=== PATIENT | female | born 1940 | race Caucasian/White ===

== ENCOUNTER 2019-12-29 10:06 | Outpatient (REF) | payer MEDICARE, OTHER, SELFPAY ==
--- NOTE | 2019-12-29 11:11 | XR_ITS ---
EXAMINATION: XR CHEST CLINICAL INFORMATION: Respiratory problems COMPARISON: None TECHNIQUE: 2 views of the chest were obtained. FINDINGS: No significant abnormality is noted involving the heart, lungs, mediastinum, bony thorax or soft tissues. XR/XR chest 2V IMPRESSION: No acute disease.
== END 2019-12-29 10:07 | disposition home or self-care (01) ==
LOC: HO.XRAY 10:06
PROVIDERS: PCP Internal Medicine; Visit Provider Hospitalist
DX: J44.9 Chronic obstructive pulmonary disease, unspecified (principal); J30.9 Allergic rhinitis, unspecified; Z87.891 Personal history of nicotine dependence; Z88.1 Allergy status to other antibiotic agents; Z88.2 Allergy status to sulfonamides; Z79.82 Long term (current) use of aspirin; Z79.899 Other long term (current) drug therapy
CPT/HCPCS: 71046; 99214

== ENCOUNTER → 2020-07-23 10:57 | Outpatient (BNVA) | payer MEDICARE, OTHER, SELFPAY | PROVIDERS: PCP Internal Medicine; Visit Provider Hospitalist | DX: J30.9 Allergic rhinitis, unspecified (principal); J44.9 Chronic obstructive pulmonary disease, unspecified; R06.00 Dyspnea, unspecified; R91.8 Other nonspecific abnormal finding of lung field | CPT/HCPCS: 99212 ==

== ENCOUNTER → 2020-08-22 10:52 | Outpatient (BNVA) | payer MEDICARE, OTHER, SELFPAY | PROVIDERS: PCP Internal Medicine; Visit Provider Hospitalist | DX: R91.8 Other nonspecific abnormal finding of lung field (principal); J44.9 Chronic obstructive pulmonary disease, unspecified; J47.9 Bronchiectasis, uncomplicated | CPT/HCPCS: 99212 ==

== ENCOUNTER → 2020-12-27 10:10 | Outpatient (BNVA) | payer MEDICARE, OTHER, SELFPAY | PROVIDERS: PCP Internal Medicine; Visit Provider Hospitalist | DX: J44.9 Chronic obstructive pulmonary disease, unspecified (principal); J47.9 Bronchiectasis, uncomplicated; R91.8 Other nonspecific abnormal finding of lung field | CPT/HCPCS: 99212 ==

== ENCOUNTER → 2021-12-02 13:08 | Outpatient (BNVA) | payer MEDICARE, OTHER, SELFPAY | PROVIDERS: PCP Internal Medicine; Visit Provider Hospitalist | DX: R91.8 Other nonspecific abnormal finding of lung field (principal); J44.9 Chronic obstructive pulmonary disease, unspecified | CPT/HCPCS: 99212 ==

== ENCOUNTER 2023-01-01 13:51 | Outpatient (AMB) | payer MEDICARE, OTHER, SELFPAY ==
--- NOTE | 2023-01-01 13:59 | A.OFFVIS_ITS ---
Intake Vital Signs 01/01/23 14:01 Height 4 ft 10.5 in Weight 134 lb BMI 27.5 BP 122/60 Blood Pressure Location Lt brachial Position Sitting Pulse 81 Pulse Source Pulse Oximeter Pulse Oximetry (%) 96 Oxygen Delivery Method Room Air Intake Visit Reasons: S/p ct chest Intake Note: pt is here for yearly follow up and states her seasonal allergies are kicking up and she notices a difference. [place] and stairs little heavy. Decal Transferrer Required: No Allergies Erythromycin Allergy (Mild, Uncoded 01/01/23 14:05) Stomach Cramps Sulfa Drugs Allergy (Mild, Uncoded 01/01/23 14:05) Rash HPI HPI Comments History of Present Illness Details Mrs Benitez, is an 82 years old woman with a history of asthma. In addition she has history of dyspnea on exertion with occasional wheezing like feeling, for the past few years. She says that she had a pulmonary function test at [facility] about 2 years ago. Does not know exact to results. She has used ProAir only once or twice a year at the most. However in the last 6 months she her shortness of breath on exertion has gradually worsened , and in the last 2 months she is feeling tight in her chest with mild wheezing off and on. She did have pulmonary function studies which she was here including spirometry demonstrating severe COPD. The patient has been on Advair for many years. She has developed some hoarseness due to this medication. In the meantime we talked about adding a muscarinic antagonist the patient was not sure because she had a bad reaction to another inhaler in the past but she does not remember the name. She is very concerned because she is very sensitive to medications. Based on the fact that she has significant COPD she would really benefit from pulmonary rehabilitation. Therefore make arrangements with the pulmonary rehabilitation at [facility] which is close to her home. 12/29/2019 the patient is here for pulmonary follow-up visit. Overall she is feeling well. She has been using her respiratory medication with very good effect. She was participating a pulmonary rehabilitation until the rehab closed during the COVID-19 infections. In the meantime she has continued to exercise at home. She has noticed some slight discomfort to her left chest area primarily in the back. A seems to come and go. At this point does feel better. On examination she seems to have some crackles at the base. Therefore further imaging studies are warranted. 07/23/2020 the patient is here for pulmonary follow-up visit. She continues to use her respiratory medications. Currently taking 1 puff of the Advair twice a day. She still complaining of dyspnea on exertion. Moderate severity with minimal activity. She is wondering if she should increase her Advair. We did talk about other alternatives including putting her on triple agent. At this point the patient is not interested in switching inhalers. In addition to that we did review her imaging studies. Back in November [address] scan of the abdomen the documented some pulmonary nodules which are subcentimeter in size. Her multiple nodules noted bilateral. The patient needs to have a did a CT scan of the chest at this time to assess for the pulmonary nodules and also the significant dyspnea. She also had a 6 minutes walk test during the visit where she desaturated but did not qualify for oxygen. Therefore, will have her undergo pulmonary function studies as well. The patient would like to continue the Advair right now she will increase to the full dose. 08/22/2020 the patient is here for pulmonary follow-up visit. She is doing a little better after increasing the Advair to twice a day 2 puffs. Her shortness of breath and chest congestion have improved. She did undergo a CT scan of the chest which demonstrates evidence of bronchiectasis primarily in the right middle lobe right lower lobe and also in the lingular area. She also has pulmonary nodules in some tree-in-bud. Most likely is all related to smoldering infection such as mycobacterial disease. She likes to work in the garden we did talk about mycobacterial bacteria that time to be not so will. She is going to start wearing a mask. The patient does have evidence of mucus plugging so therefore she will start chest physical therapy with nebulized therapy with albuterol as well as an Acapella valve that we get through her [employer]. Will also try to get a sputum culture for overall of Gram staining culture and AFB cultures. The patient will continue with the Advair at this time. Will follow up in the fall and decide at that point depending on her symptoms went to repeat the CT scan between 6-12 months. 12/27/2020 the patient is here for a pulmonary follow-up visit. Overall the patient has been doing well. She has a hard time tolerating the nebulized therapy due to albuterol making her very shaky and tremulous. We did talk about the importance of the bronch all pulmonary hygiene. She does have the Acapella valve. She can try used using half a treatment and see if that is more tolerable for her. She we again discussed the findings on a CT scan demons trating tree-in-bud suggesting bronchiolitis in addition to small pulmonary nodules. Her last CT scan was back in August 2020. She was not able to bring sputum cultures her samples therefore we do not have any specimens to review. The patient will continue with current respiratory therapy and will follow-up next year will plan to do another CT scan for follow-up of her pulmonary nodules. 12/02/2021 the patient is here for pulmonary follow-up visit. Overall she continues to do well. She continues use her respiratory therapy. Denies any recent exacerbations or need for prednisone. She also underwent a CT scan of the chest in [place] personally by me. The patient has multiple pulmonary nodules although the largest nodule measuring 9 mm in size and appears to be ground glassy nature. We did compared to her previous CT scan from 2019. no significant changes noted although it is in a regular density just difficult to measure altogether. Does not appear to have any worsening solid component. The patient will require additional follow-up in 1 year or sooner if she develops any worsening symptoms. 01/01/2023 the patient is here for pulmonary follow-up visit. Overall the patient has been doing better. The patient states that back in the summertime the patient went to [place] to visit her son. While she was there she started developing worsening cough very congested and to the point that she had to seek medical advice. She was evaluated had a negative COVID test. She was found to be rhonchorous in give her a course of antibiotics. She was also given prednisone to take it if she worsens but she did not. The patient overall is better she states that she is 75% better. She still coughing though however. She does use her inhalers as prescribed. The patient did have a CT scan of the chest about a month ago. We did personally review it. It appears that she has new tree-in-bud changes in pulmonary nodules in the right lower lobe area and then a small area of ground-glass opacity suggesting a small localized pneumonia. Therefore will start her on doxycycline to treated for postviral bacterial infections and then will plan to repeat the CT scan an earlier time based on the new findings. [facility] Medical History (Updated 08/22/20 @ 11:26 by Amrik Rudolph MD) Bronchiectasis Dyspnea Pulmonary nodules Chest crackles Chronic allergic rhinitis COPD (chronic obstructive pulmonary disease) Social History Patient Tobacco Use Status: Former Tobacco user Tobacco use type: Cigarette Years Smoked: 34 years Review of Systems Const Denies night sweats ENT Denies change in voice, Denies lip swelling, Denies mouth pain, Reports nasal congestion, Reports nasal discharge and Denies tongue swelling Card Denies chest pain Resp Reports chest congestion and Reports cough GI Denies abdominal pain Musc Denies no additional complaints Neuro Denies Neuro-related abnormal movements Psych Denies no additional complaints Greg/Lymph Denies easy bleeding and Denies lymphadenopathy Aller/Immun Denies lip swelling and Denies tongue swelling Physical Exam Vital Signs: Last Vital Signs Pulse 81 01/01/23 14:01 BP 122/60 01/01/23 14:01 Pulse Ox 96 01/01/23 14:01 Oxygen Delivery Method Room Air 01/01/23 14:01 BMI result Body Mass Index 27.5 Const General: alert Eyes Pupils: Equal, round and reactive pupils present Neck Neck: Yes normal visual inspection, Yes full ROM and Yes no lymphadenopathy Chest Chest palpation & inspection: normal inspection of the chest Resp Auscultation: no crackles, rhonchi and diminished lung sounds Cardio Rate: regular rate Rhythm: regular rhythm Heart sounds: S1 normal heart sound present and S2 normal heart sound present GI Palpation (GI): Soft to palpation and nontender Auscultation: normal bowel sounds Skin General skin exam: rashes and/or lesions noted Neuro Cranial nerves: Yes Equal, round and reactive pupils present Assessment & Plan Assessment & Plan (1) Pulmonary nodules: Code(s): R91.8 - Other nonspecific abnormal finding of lung field (2) COPD (chronic obstructive pulmonary disease): Code(s): J44.9 - Chronic obstructive pulmonary disease, unspecified Qualifiers: COPD type: unspecified COPD Qualified Code(s): J44.9 - Chronic obstructive pulmonary disease, unspecified (3) Bronchiectasis: Code(s): J47.9 - Bronchiectasis, uncomplicated Qualifiers: Bronchiectasis type: uncomplicated Qualified Code(s): J47.9 - Bronchiectasis, uncomplicated Plan start Augmentin for bronchiolitis Repeat CT chest in 6 months Continue Advair 2 puffs twice a day HAYDEN as needed continue CPT with nebulized therapy followed by Acapella valve daily F/U 6 months Orders: Orders CT chest wo IV con 6 Months R91.8 - Other nonspecific abnormal finding of lung field Medications: New amoxicillin-pot clavulanate 875-125 mg 1 tab PO BID 20 tabs 0RF 10 days Coding Level of Care Code Est Pt Level 4 (06811) Diagnoses Pulmonary nodules R91.8 Chronic obstructive pulmonary disease, unspecified COPD type J44.9 COPD type: unspecified COPD Bronchiectasis without complication J47.9 Bronchiectasis type: uncomplicated Time Spent (min) 17
[2023-01-01 14:01] VITALS: BP 122/60; PULSE 81; O2SAT 96; BMI 27.5
== END 2023-01-01 14:33 | disposition home or self-care (01) ==
PROVIDERS: PCP Internal Medicine; Visit Provider Hospitalist
DX: R91.8 Other nonspecific abnormal finding of lung field (principal); J44.9 Chronic obstructive pulmonary disease, unspecified
CPT/HCPCS: 99214

== ENCOUNTER → 2023-01-01 13:51 | Outpatient (BNVA) | payer MEDICARE, OTHER, SELFPAY | PROVIDERS: PCP Internal Medicine; Visit Provider Hospitalist | DX: J44.9 Chronic obstructive pulmonary disease, unspecified (principal); R91.8 Other nonspecific abnormal finding of lung field; J47.9 Bronchiectasis, uncomplicated | CPT/HCPCS: 99212 ==

== ENCOUNTER 2023-06-18 14:42 | Outpatient (AMB) | payer MEDICARE, OTHER, SELFPAY ==
[2023-06-18 14:50] VITALS: BP 124/74; PULSE 79; O2SAT 97; BMI 28.6
--- NOTE | 2023-06-18 14:50 | A.OFFVIS_ITS ---
Intake Vital Signs 06/18/23 14:50 Height 4 ft 10.5 in Weight 139 lb BMI 28.6 BP 124/74 Blood Pressure Location Lt brachial Position Sitting Pulse 79 Pulse Source Pulse Oximeter Pulse Oximetry (%) 97 Oxygen Delivery Method Room Air Intake Visit Reasons: Review CT scan Allergies amoxicillin [From Augmentin] Adverse Reaction (Severe, Verified 06/18/23 14:58) vomiting clavulanic acid [From Augmentin] Adverse Reaction (Severe, Verified 06/18/23 14:58) vomiting doxycycline Adverse Reaction (Severe, Verified 06/18/23 14:57) Nausea Erythromycin Allergy (Mild, Uncoded 06/18/23 14:57) Stomach Cramps Sulfa Drugs Allergy (Mild, Uncoded 06/18/23 14:57) Rash HPI HPI Comments History of Present Illness Details Mrs Benitez, is an 82 years old woman with a history of asthma. In addition she has history of dyspnea on exertion with occasional wheezing like feeling, for the past few years. She says that she had a pulmonary function test at [facility] about 2 years ago. Does not know exact to results. She has used ProAir only once or twice a year at the most. However in the last 6 months she her shortness of breath on exertion has gradually worsened , and in the last 2 months she is feeling tight in her chest with mild wheezing off and on. She did have pulmonary function studies which she was here including spirometry demonstrating severe COPD. The patient has been on Advair for many years. She has developed some hoarseness due to this medication. In the meantime we talked about adding a muscarinic antagonist the patient was not sure because she had a bad reaction to another inhaler in the past but she does not remember the name. She is very concerned because she is very sensitive to medications. Based on the fact that she has significant COPD she would really benefit from pulmonary rehabilitation. Therefore make arrangements with the pulmonary rehabilitation at [facility] which is close to her home. 12/29/2019 the patient is here for pulmonary follow-up visit. Overall she is feeling well. She has been using her respiratory medication with very good effect. She was participating a pulmonary rehabilitation until the rehab closed during the COVID-19 infections. In the meantime she has continued to exercise at home. She has noticed some slight discomfort to her left chest area primarily in the back. A seems to come and go. At this point does feel better. On examination she seems to have some crackles at the base. Therefore further imaging studies are warranted. 07/23/2020 the patient is here for pulmonary follow-up visit. She continues to use her respiratory medications. Currently taking 1 puff of the Advair twice a day. She still complaining of dyspnea on exertion. Moderate severity with minimal activity. She is wondering if she should increase her Advair. We did talk about other alternatives including putting her on triple agent. At this point the patient is not interested in switching inhalers. In addition to that we did review her imaging studies. Back in November [address] scan of the abdomen the documented some pulmonary nodules which are subcentimeter in size. Her multiple nodules noted bilateral. The patient needs to have a did a CT scan of the chest at this time to assess for the pulmonary nodules and also the significant dyspnea. She also had a 6 minutes walk test during the visit where she desaturated but did not qualify for oxygen. Therefore, will have her undergo pulmonary function studies as well. The patient would like to continue the Advair right now she will increase to the full dose. 08/22/2020 the patient is here for pulmonary follow-up visit. She is doing a little better after increasing the Advair to twice a day 2 puffs. Her shortness of breath and chest congestion have improved. She did undergo a CT scan of the chest which demonstrates evidence of bronchiectasis primarily in the right middle lobe right lower lobe and also in the lingular area. She also has pulmonary nodules in some tree-in-bud. Most likely is all related to smoldering infection such as mycobacterial disease. She likes to work in the garden we did talk about mycobacterial bacteria that time to be not so will. She is going to start wearing a mask. The patient does have evidence of mucus plugging so therefore she will start chest physical therapy with nebulized therapy with albuterol as well as an Acapella valve that we get through her [employer] company. Will also try to get a sputum culture for overall of Gram staining culture and AFB cultures. The patient will continue with the Advair at this time. Will follow up in the fall and decide at that point depending on her symptoms went to repeat the CT scan between 6-12 months. 12/27/2020 the patient is here for a pulmonary follow-up visit. Overall the patient has been doing well. She has a hard time tolerating the nebulized therapy due to albuterol making her very shaky and tremulous. We did talk about the importance of the bronch all pulmonary hygiene. She does have the Acapella valve. She can try used using half a treatment and see if that is more tolerable for her. She we again discussed the findings on a CT scan dem onstrating tree-in-bud suggesting bronchiolitis in addition to small pulmonary nodules. Her last CT scan was back in August 2020. She was not able to bring sputum cultures her samples therefore we do not have any specimens to review. The patient will continue with current respiratory therapy and will follow-up next year will plan to do another CT scan for follow-up of her pulmonary nodules. 12/02/2021 the patient is here for pulmonary follow-up visit. Overall she continues to do well. She continues use her respiratory therapy. Denies any recent exacerbations or need for prednisone. She also underwent a CT scan of the chest in [place] personally by me. The patient has multiple pulmonary nodules although the largest nodule measuring 9 mm in size and appears to be ground glassy nature. We did compared to her previous CT scan from 2019. no significant changes noted although it is in a regular density just difficult to measure altogether. Does not appear to have any worsening solid component. The patient will require additional follow-up in 1 year or sooner if she develops any worsening symptoms. 01/01/2023 the patient is here for pulmonary follow-up visit. Overall the patient has been doing better. The patient states that back in the summertime the patient went to [place] to visit her son. While she was there she started developing worsening cough very congested and to the point that she had to seek medical advice. She was evaluated had a negative COVID test. She was found to be rhonchorous in give her a course of antibiotics. She was also given predni sone to take it if she worsens but she did not. The patient overall is better she states that she is 75% better. She still coughing though however. She does use her inhalers as prescribed. The patient did have a CT scan of the chest about a month ago. We did personally review it. It appears that she has new tree-in-bud changes in pulmonary nodules in the right lower lobe area and then a small area of ground-glass opacity suggesting a small localized pneumonia. Therefore will start her on doxycycline to treated for postviral bacterial infections and then will plan to repeat the CT scan an earlier time based on the new findings. 06/18/2023 the patient is here for pulmonary follow-up visit. Overall she is doing okay. She continues to have some hoarseness even with using the spacer with her Advair HFA. She has been using 1 puff twice a day. She will try taking little bit lost to see if her respiratory symptoms stay stable and hoarseness gets a little better. She is also will continue to rinse with mouthwash or salt water after use. The patient also had a CT scan of the chest which we personally reviewed. Patient does have multiple pulmonary nodules largest 1 between 5-6 mm in size. The patient will need to get a repeat CT scan in a year's time. In the meantime she will continue with current respiratory therapy. Follow-up in a year's time after her CT scan. [facility] Medical History (Updated 08/22/20 @ 11:26 by Amrik Rudolph MD) Bronchiectasis Dyspnea Pulmonary nodules Chest crackles Chronic allergic rhinitis COPD (chronic obstructive pulmonary disease) Social History Patient Tobacco Use Status: Former Tobacco user Tobacco use type: Cigarette Years Smoked: 34 years Review of Systems Const Denies night sweats ENT Denies change in voice, Denies lip swelling, Denies mouth pain, Reports nasal c ongestion, Reports nasal discharge and Denies tongue swelling Card Denies chest pain Resp Reports chest congestion and Reports cough GI Denies abdominal pain Musc Denies no additional complaints Neuro Denies Neuro-related abnormal movements Psych Denies no additional complaints Greg/Lymph Denies easy bleeding and Denies lymphadenopathy Aller/Immun Denies lip swelling and Denies tongue swelling Physical Exam Vital Signs: Last Vital Signs Pulse 79 06/18/23 14:50 BP 124/74 06/18/23 14:50 Pulse Ox 97 06/18/23 14:50 Oxygen Delivery Method Room Air 06/18/23 14:50 BMI result Body Mass Index 28.6 Const General: alert Eyes Pupils: Equal, round and reactive pupils present Neck Neck: Yes normal visual inspection, Yes full ROM and Yes no lymphadenopathy Chest Chest palpation & inspection: normal inspection of the chest Resp Auscultation: no crackles, no rhonchi and diminished lung sounds Cardio Rate: regular rate Rhythm: regular rhythm Heart sounds: S1 normal heart sound present and S2 normal heart sound present GI Palpation (GI): Soft to palpation and nontender Auscultation: normal bowel sounds Skin General skin exam: rashes and/or lesions noted Neuro Cranial nerves: Yes Equal, round and reactive pupils present Assessment & Plan Assessment & Plan (1) Pulmonary nodules: Code(s): R91.8 - Other nonspecific abnormal finding of lung field (2) COPD (chronic obstructive pulmonary disease): Code(s): J44.9 - Chronic obstructive pulmonary disease, unspecified Qualifiers: COPD type: unspecified COPD Qualified Code(s): J44.9 - Chronic obstructive pulmonary disease, unspecified (3) Bronchiectasis: Code(s): J47.9 - Bronchiectasis, uncomplicated Qualifiers: Bronchiectasis type: uncomplicated Qualified Code(s): J47.9 - Bronchiectasis, uncomplicated Plan Continue Advair 2 puffs twice a day with spacer, ok to decrease dose HAYDEN as needed continue CPT with nebulized therapy followed by Acapella valve daily repeat CT chest in 1 yr F/U 12 months Orders: Orders CT chest wo IV con 11 Months R91.8 - Other nonspecific abnormal finding of lung field Coding Level of Care Code Est Pt Level 4 (07038) Diagnoses Pulmonary nodules R91.8 Chronic obstructive pulmonary disease, unspecified COPD type J44.9 COPD type: unspecified COPD Bronchiectasis without complication J47.9 Bronchiectasis type: uncomplicated Time Spent (min) 17
== END 2023-06-18 15:14 | disposition home or self-care (01) ==
PROVIDERS: PCP Internal Medicine; Visit Provider Hospitalist
DX: R91.8 Other nonspecific abnormal finding of lung field (principal); J44.9 Chronic obstructive pulmonary disease, unspecified; J47.9 Bronchiectasis, uncomplicated
CPT/HCPCS: 99214

== ENCOUNTER → 2023-06-18 14:42 | Outpatient (BNVA) | payer MEDICARE, OTHER, SELFPAY | PROVIDERS: PCP Internal Medicine; Visit Provider Hospitalist | DX: R91.8 Other nonspecific abnormal finding of lung field (principal); J47.9 Bronchiectasis, uncomplicated; J44.9 Chronic obstructive pulmonary disease, unspecified | CPT/HCPCS: 99212 ==

== ENCOUNTER 2024-06-19 14:52 | Outpatient (AMB) | payer MEDICARE, OTHER, SELFPAY ==
[2024-06-19 15:08] VITALS: BP 132/76; PULSE 85; O2SAT 97; BMI 29.2
--- NOTE | 2024-06-19 15:08 | MHC.OFFVIS ---
Vital Signs 06/19/24 15:08 Height 4 ft 10.5 in Weight 142 lb 3.17 oz BMI 29.2 BP 132/76 Blood Pressure Location Rt brachial Position Sitting Pulse 85 Pulse Source Pulse Oximeter Pulse Oximetry (%) 97 Oxygen Delivery Method Room Air Intake Visit Reasons: Bronchiectasis Allergies amoxicillin [From Augmentin] Adverse Reaction (Severe, Verified 06/19/24 15:11) vomiting clavulanic acid [From Augmentin] Adverse Reaction (Severe, Verified 06/19/24 15:11) vomiting doxycycline Adverse Reaction (Severe, Verified 06/19/24 15:11) Nausea Erythromycin Allergy (Mild, Uncoded 06/19/24 15:11) Stomach Cramps Sulfa Drugs Allergy (Mild, Uncoded 06/19/24 15:11) Rash HPI Comments Details: Mrs Benitez, is an 83 years old woman with a history of asthma. In addition she has history of dyspnea on exertion with occasional wheezing like feeling, for the past few years. She says that she had a pulmonary function test at [facility] about 2 years ago. Does not know exact to results. She has used ProAir only once or twice a year at the most. However in the last 6 months she her shortness of breath on exertion has gradually worsened , and in the last 2 months she is feeling tight in her chest with mild wheezing off and on. She did have pulmonary function studies which she was here including spirometry demonstrating severe COPD. The patient has been on Advair for many years. She has developed some hoarseness due to this medication. In the meantime we talked about adding a muscarinic antagonist the patient was not sure because she had a bad reaction to another inhaler in the past but she does not remember the name. She is very concerned because she is very sensitive to medications. Based on the fact that she has significant COPD she would really benefit from pulmonary rehabilitation. Therefore make arrangements with the pulmonary rehabilitation at [facility] which is close to her home. 12/29/2019 the patient is here for pulmonary follow-up visit. Overall she is feeling well. She has been using her respiratory medication with very good effect. She was participating a pulmonary rehabilitation until the rehab closed during the COVID-19 infections. In the meantime she has continued to exercise at home. She has noticed some slight discomfort to her left chest area primarily in the back. A seems to come and go. At this point does feel better. On examination she seems to have some crackles at the base. Therefore further imaging studies are warranted. 07/23/2020 the patient is here for pulmonary follow-up visit. She continues to use her respiratory medications. Currently taking 1 puff of the Advair twice a day. She still complaining of dyspnea on exertion. Moderate severity with minimal activity. She is wondering if she should increase her Advair. We did talk about other alternatives including putting her on triple agent. At this point the patient is not interested in switching inhalers. In addition to that we did review her imaging studies. Back in November [address] scan of the abdomen the documented some pulmonary nodules which are subcentimeter in size. Her multiple nodules noted bilateral. The patient needs to have a did a CT scan of the chest at this time to assess for the pulmonary nodules and also the significant dyspnea. She also had a 6 minutes walk test during the visit where she desaturated but did not qualify for oxygen. Therefore, will have her undergo pulmonary function studies as well. The patient would like to continue the Advair right now she will increase to the full dose. 08/22/2020 the patient is here for pulmonary follow-up visit. She is doing a little better after increasing the Advair to twice a day 2 puffs. Her shortness of breath and chest congestion have improved. She did undergo a CT scan of the chest which demonstrates evidence of bronchiectasis primarily in the right middle lobe right lower lobe and also in the lingular area. She also has pulmonary nodules in some tree-in-bud. Most likely is all related to smoldering infection such as mycobacterial disease. She likes to work in the garden we did talk about mycobacterial bacteria that time to be not so will. She is going to start wearing a mask. The patient does have evidence of mucus plugging so therefore she will start chest physical therapy with nebulized therapy with albuterol as well as an Acapella valve that we get through her [employer] company. Will also try to get a sputum culture for overall of Gram staining culture and AFB cultures. The patient will continue with the Advair at this time. Will follow up in the fall and decide at that point depending on her symptoms went to repeat the CT scan between 6-12 months. 12/27/2020 the patient is here for a pulmonary follow-up visit. Overall the patient has been doing well. She has a hard time tolerating the nebulized therapy due to albuterol making her very shaky and tremulous. We did talk about the importance of the bronch all pulmonary hygiene. She does have the Acapella valve. She can try used using half a treatment and see if that is more tolerable for her. She we again discussed the findings on a CT scan demonstrating tree-in-bud suggesting bronchiolitis in addition to small pulmonary nodules. Her last CT scan was back in August 2020. She was not able to bring sputum cultures her samples therefore we do not have any specimens to review. The patient will continue with current respiratory therapy and will follow-up next year will plan to do another CT scan for follow-up of her pulmonary nodules. 12/02/2021 the patient is here for pulmonary follow-up visit. Overall she continues to do well. She continues use her respiratory therapy. Denies any recent exacerbations or need for prednisone. She also underwent a CT scan of the chest in [place] personally by me. The patient has multiple pulmonary nodules although the largest nodule measuring 9 mm in size and appears to be ground glassy nature. We did compared to her previous CT scan from 2019. no significant changes noted although it is in a regular density just difficult to measure altogether. Does not appear to have any worsening solid component. The patient will require additional follow-up in 1 year or sooner if she develops any worsening symptoms. 01/01/2023 the patient is here for pulmonary follow-up visit. Overall the patient has been doing better. The patient states that back in the summertime the patient went to [place] to visit her son. While she was there she started developing worsening cough very congested and to the point that she had to seek medical advice. She was evaluated had a negative COVID test. She was found to be rhonchorous in give her a course of antibiotics. She was also given prednisone to take it if she worsens but she did not. The patient overall is better she states that she is 75% better. She still coughing though however. She does use her inhalers as prescribed. The patient did have a CT scan of the chest about a month ago. We did personally review it. It appears that she has new tree-in-bud changes in pulmonary nodules in the right lower lobe area and then a small area of ground-glass opacity suggesting a small localized pneumonia. Therefore will start her on doxycycline to treated for postviral bacterial infections and then will plan to repeat the CT scan an earlier time based on the new findings. 06/18/2023 the patient is here for pulmonary follow-up visit. Overall she is doing okay. She continues to have some hoarseness even with using the spacer with her Advair HFA. She has been using 1 puff twice a day. She will try taking little bit lost to see if her respiratory symptoms stay stable and hoarseness gets a little better. She is also will continue to rinse with mouthwash or salt water after use. The patient also had a CT scan of the chest which we personally reviewed. Patient does have multiple pulmonary nodules largest 1 between 5-6 mm in size. The patient will need to get a repeat CT scan in a year's time. In the meantime she will continue with current respiratory therapy. Follow-up in a year's time after her CT scan. 06/19/2024 the patient is here for pulmonary follow-up visit. It has been about a year since we last spoke. Back in the winter or early 2024 she started developing bad cold. She saw her primary care doctor believe she got some antibiotics. Air cough got better but she still continue to a cough. She started developing some right-sided discomfort that radiates to the arm. She became concerned. During the same time she did undergo a CT scan of the chest to follow-up with pulmonary nodules. She had this elsewhere. She did call the office see what the results were we did send her a copy of the report saying that it was stable. Today though she came into the office and I personally reviewed the images demonstrating slight consolidation right middle lobe area. I did give her a Z-Talha since she still has some discomfort and she is still having a cough. But it seems like the pneumonia has now subsided for the most part. Will go ahead and plan to repeat the CAT scan in 3 months to make sure that the consolidation is all gone. If is still there we can talk about potential options. She does have the Acapella valve and CPT is important to continue. She does have some musculoskeletal discomfort with some pain in the costochondral joints. For the next CT scan will have her get the CAT scan here just to have access to the images quickly and to make sure that it can be addressed quickly specially since it was not visualized on the evaluation. [facility] Medical History (Updated 06/19/24 @ 20:54 by Amrik Rudolph MD) Pneumonia Bronchiectasis Dyspnea Pulmonary nodules Chest crackles Chronic allergic rhinitis COPD (chronic obstructive pulmonary disease) Social History Patient Tobacco Use Status: Former Tobacco user Tobacco use type: Cigarette Years Smoked: 34 years Review of Systems Const Denies night sweats ENT Denies change in voice, Denies lip swelling, Denies mouth pain, Reports nasal congestion, Reports nasal discharge and Denies tongue swelling Card Reports chest pain Resp Reports chest congestion and Reports cough GI Denies abdominal pain Musc Denies no additional complaints Neuro Denies Neuro-related abnormal movements Psych Denies no additional complaints Greg/Lymph Denies easy bleeding and Denies lymphadenopathy Aller/Immun Denies lip swelling and Denies tongue swelling Physical Exam Vital Signs: Last Vital Signs Pulse 85 06/19/24 15:08 BP 132/76 06/19/24 15:08 Pulse Ox 97 06/19/24 15:08 Oxygen Delivery Method Room Air 06/19/24 15:08 BMI result Body Mass Index 29.2 Const General: alert Eyes Pupils: Equal, round and reactive pupils present Neck Neck: Yes normal visual inspection, Yes full ROM and Yes no lymphadenopathy Chest Chest palpation & inspection: normal inspection of the chest Resp Auscultation: no crackles, no rhonchi and diminished lung sounds Cardio Rate: regular rate Rhythm: regular rhythm Heart sounds: S1 normal heart sound present and S2 normal heart sound present GI Palpation (GI): Soft to palpation and nontender Auscultation: normal bowel sounds Skin General skin exam: rashes and/or lesions noted Neuro Cranial nerves: Yes Equal, round and reactive pupils present Results Reviewed Results Reviewed: Assessment & Plan Assessment & Plan (1) Pulmonary nodules: Code(s): R91.8 - Other nonspecific abnormal finding of lung field Category: Medical (2) COPD (chronic obstructive pulmonary disease): Code(s): J44.9 - Chronic obstructive pulmonary disease, unspecified Category: Medical Qualifiers: COPD type: unspecified COPD Qualified Code(s): J44.9 - Chronic obstructive pulmonary disease, unspecified (3) Bronchiectasis: Code(s): J47.9 - Bronchiectasis, uncomplicated Category: Medical Qualifiers: Bronchiectasis type: uncomplicated Qualified Code(s): J47.9 - Bronchiectasis, uncomplicated (4) Pneumonia: Code(s): J18.9 - Pneumonia, unspecified organism Category: Medical Qualifiers: Laterality: right Lung location: middle lobe of lung Pneumonia type: due to unspecified organism Qualified Code(s): J18.9 - Pneumonia, unspecified organism (5) Chest pain: Code(s): R07.9 - Chest pain, unspecified Category: Medical Qualifiers: Chest pain type: unspecified Qualified Code(s): R07.9 - Chest pain, unspecified Plan Continue Advair 2 puffs twice a day with spacer, ok to decrease dose HAYDEN as needed continue CPT with nebulized therapy followed by Acapella valve daily start azithromycin 500mg x [address] chest in 3 months F/U 3-4 months Orders: Orders CT chest wo IV con 3 Months J18.9 - Pneumonia, unspecified organism, J47.9 - Bronchiectasis, uncomplicated, R07.9 - Chest pain, unspecified, R91.8 - Other nonspecific abnormal finding of lung field Medications: New azithromycin 500 mg PO DAILY 5 days 5 tabs 0RF Coding Level of Care Code Est Pt Level 4 (11574) Complex EM visit Add On G2211 Diagnoses Pulmonary nodules R91.8 Chronic obstructive pulmonary disease, unspecified COPD type J44.9 COPD type: unspecified COPD Bronchiectasis without complication J47.9 Bronchiectasis type: uncomplicated Pneumonia of right middle lobe due to infectious organism J18.9 Laterality: right Lung location: middle lobe of lung Pneumonia type: due to unspecified organism Chest pain, unspecified type R07.9 Chest pain type: unspecified Time Spent (min) 18
--- OUTSIDE RECORDS SUMMARY | 2024-06-19 17:25 | XMS_ITS | Data Portability ---
Author Organization [facility], [employer] Address [address] [facility] [address] [place] [phone] Assessment No assessment recorded. Plan of Treatment Reminders Order Date Submit Date Provider Last Modified By Organization Details Last Modified Time Details Appointments None record ed. Lab None record ed. Referral None record ed. Procedures None record ed. Surgeries None record ed. Imaging None record ed. Medication Orders None record ed. Patient TargetsNo targets recorded. Patient InstructionsNo instructions recorded. Reason for Referral None Reported. Problems Name Problem SNOMED Code Status Onset Date Resolution Date Notes Provider Name and Address Organization Details Recorded Time Laceration - injury 998963089 Active Anuja Culver [facility] 5 10:27:15 Laceration of finger 924141688 Active 015 Anuja Culver [facility] 5 10:27:15 Problem Notes None recorded. Medical Equipment None Reported. Medications Name Sig Start Date Stop Date Status Note LastModified by Organization Details LastModified Time Advair Diskus 100 mcg-50 mcg/dose powder for inhalation active Not Available Not Available N ot Available lorazepam 0.5 mg tablet active Not Available Not Available No t Available erythromycin 5 mg/gram (0.5 %) eye ointment active Not Available Not Available Not Available ProAir HFA 90 mcg/actuation aerosol inhaler active Not Available Not Available Not Available Vitals None Recorded Social History None recorded. Functional Status None recorded. Mental Status None recorded. Family History Nothing Reported. Medical History No medical history recorded. Gynecological HistoryNo gynecological history recorded. Obstetrics History GPAL:G 0 P 0 0 0 0 Past Encounters Encounter ID Performer Location Encounter Start Date Encounter Closed Date Diagnosis/Indication Diagnosis SNOMED-CT Code Diagnosis ICD10 Code Diagnosis Note [id number] [facility] [address] [place] [address] 11/14/2014 10:15:29 11/14/2014 11:15:59 Laceration - injury [id number] Health Concerns Section Related Observation LastModified by Organization Detai ls LastModified Time None Recorded Concern Status LastModified by Organization Details LastModified Time None Recorded Advance Directives Directive None Recorded Payers Encounter Date Sequence Insurance Name Policy Number Policy Denis Covered Member ID Denis Member ID Guarantor Name 10/24/2014 1 MEDICARE B-PA: [employer] [id number] Kaur Benitez [id number] Kaur Benitez 10/24/2014 2 [facility] IN[facility]MN[facility] - [facility] [id number] Kaur Benitez [id number] Kaur Benitez Notes Date Note Type Note Provider Name and Address Organization Details Recorded Time 10/24/2014 text/html client states sh e reached into her pocketbook and cut her finger Jarrett ramirez MA - [facility] 11/17/2014 17:17:06 OBGyn Episode No OBEpisode recorded.
== END 2024-06-19 15:59 | disposition home or self-care (01) ==
LOC: HO.HPS 14:52
PROVIDERS: PCP Internal Medicine; Visit Provider Hospitalist
DX: R91.8 Other nonspecific abnormal finding of lung field (principal); J44.9 Chronic obstructive pulmonary disease, unspecified; J47.9 Bronchiectasis, uncomplicated; J18.9 Pneumonia, unspecified organism; R07.9 Chest pain, unspecified
CPT/HCPCS: 99214; G2211

== ENCOUNTER → 2024-06-19 14:52 | Outpatient (BNVA) | payer MEDICARE, OTHER, SELFPAY | PROVIDERS: PCP Internal Medicine; Visit Provider Hospitalist | DX: J47.9 Bronchiectasis, uncomplicated (principal); J44.9 Chronic obstructive pulmonary disease, unspecified; J18.9 Pneumonia, unspecified organism; R91.8 Other nonspecific abnormal finding of lung field; R07.9 Chest pain, unspecified | CPT/HCPCS: 99212 ==

== ENCOUNTER 2024-09-14 10:08 | Outpatient (REF) | payer MEDICARE, OTHER, SELFPAY ==
--- NOTE | ~2024-09-14 | CT_ITS ---
EXAMINATION: CT CHEST WITHOUT IV CONTRAST INDICATION: J18.9 - Pneumonia, unspecified organism COMPARISON: Correlation is made with PA and lateral views of the chest dated 12/29/2019. TECHNIQUE: Helical CT scan of the chest was performed without intravenous contrast. Coronal and sagittal reformatted images were generated and reviewed. This CT exam was performed with one or more of the following dose reduction techniques: automated exposure control, adjustment of the mA and/or kV according to patient size, use of iterative reconstruction technique. DLP: 151 mGy-cm CHEST: THYROID: The thyroid is unremarkable. LUNGS: There is a 9 mm groundglass opacity at the right lung apex (series 12, image 25). There is atelectasis and volume loss of the right middle lobe with associated bronchiectasis. No endobronchial lesion is identified. There is a 2 mm nodule in the left lower lobe (series 12, image 112). Two adjacent 3 mm nodules are seen in the left lower lobe (series 12, images 120 and 121). MEDIASTINUM: There is no mediastinal lymphadenopathy. TIESHA: Evaluation of the hilar regions is limited by lack of intravenous contrast material. CARDIOVASCULATURE: The heart is normal in size. There is no pericardial effusion. The thoracic aorta is normal in caliber. DEGREE OF CORONARY CALCIFICATION: moderate PLEURA: There is no pleural effusion. No pneumothorax. MAIN AIRWAYS: The mainstem bronchi and proximal branches are patent. AXILLA: There is no axillary lymphadenopathy. BONES AND SOFT TISSUES: Unremarkable UPPER ABDOMEN: The liver is enlarged and demonstrates decreased attenuation, consistent with steatosis. The visualized portions of the spleen and adrenals have an unremarkable unenhanced appearance. There is a small hiatal hernia. CT/CT chest wo IV con IMPRESSION: 1. Right middle lobe atelectasis and associated bronchiectasis. No endobronchial lesion is identified. Bronchoscopy should be considered. 2. Scattered tiny bilateral pulmonary nodules as described. Please see Fleischner Society guidelines below. 3. Hepatomegaly and hepatic steatosis. Fleischner Criteria for pulmonary nodule follow-up SOLID NODULES: Low risk patient: <6mm: no follow-up 6-8mm: 6 month follow-up CT >8mm: PET/Biopsy/ 3 month follow-up CT High risk patient: <6mm: 12 month follow-up CT 6-8mm: 6 month follow-up CT >8mm: PET/Biopsy/ 3 month follow-up CT SUB-SOLID/GROUNDGLASS NODULES: All patients: > or = 6mm: 6 month follow-up CT *Please note that in patients in the following categories, the Fleischner criteria do not apply: Immunocompromised, lung cancer screening population, age below 35, and patients with known malignancy Electronically signed by: Garrett Gonzalez MD 09/14/2024 10:43 AM EDT
--- OUTSIDE RECORDS SUMMARY | 2024-09-14 10:46 | XMS_ITS | Data Portability ---
Author Organization [facility], [employer] Address [address] [facility] [address] [place] [address] Assessment No assessment recorded. Plan of Treatment [...] Organization Details Recorded Time Laceration - injury 357463626 Active Anujamaria elena Culver [facility] 5 10:27:15 Laceration of finger 280050724 Active 015 Anuja Culver [facility] 5 10:27:15 Problem Notes None recorded. Medical [...] Code Diagnosis ICD10 Code Diagnosis Note [id number] Jarrett Rowan MD [facility] [address] [place] [address] 11/14/2014 10:15:29 11/14/2014 11:15:59 Laceration - injury [id number] Health Concerns Section Related Observation LastModified by Organization Detai ls LastModified Time None Recorded Concern Status LastModified by Organization Details LastModified Time None Recorded Advance Directives Directive None Recorded Payers Insurance Date Sequence Insurance Name Policy Number Policy Denis Covered Member ID Denis Member ID Guarantor Name 12/10/2020 1 MEDICARE B-AR: [facility] [employer] [id number] 2 Kaur Benitez [id number] Kaur Benitez 12/10/2020 2 [facility] [id number] 2 Kaur Benitez [id number] Kaur Benitez Notes Date Note Type Note Provider Name and Address Organization Details Recorded Time 10/24/2014 text/html client states sh e reached into her pocketbook and cut her finger Jarrett ramirez MA - [facility] 11/17/2014 17:17:06 OBGyn Episode No OBEpisode recorded.
--- OUTSIDE RECORDS SUMMARY | 2024-09-14 10:46 | XMS_ITS | Clinical Summary ---
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 05/21/19 25 Active Advair HFA 115-21 mcg/actuation inhaler Inhale 2 puffs by mouth 2 (two) times a day. 03/16/19 25 Active OptiChamber Yamilet [facility] inhaler See administration instructions. 03/17/19 25 Active triamcinolone (KENALOG) 0.1 % cream Apply 1 Application topically 2 (two) times a day for 7 days. 30 g 09/05/19 25 025 Encounters Date Type Department Care Team Description 09/04/2024 3:15 PM EDT Office Visit [facility] - [address] [phone] Christoph Bhardwaj PA Allergic dermatitis (Primary Dx) 06/30/2024 3:15 PM EDT Office Visit [facility] - [address] [phone] Christoph Bhardwaj PA Tendinitis of right foot (Primary Dx) from Last 3 Months Surgical History Surgery Date Site/Laterality Comments APPENDECTOMY PROCEDURE: HISTORICAL APPENDECTOMY TONSILLECTOMY ADENOIDECTOMY, BILATERAL MYRINGOTOMY AND TUBES PROCEDURE: [place] TONSILLECTOMY & ADENOIDECTOMY <AGE 11 Medical History Medical History Date Comments Lumbago 12/11/2004 DX:Lumbago Esophageal reflux 12/11/2004 DX:Esophageal reflux Osteoporosis, unspecified 12/11/2004 DX:Ost eoporosis, unspecified Other ankle sprain and strain 12/11/2004 DX :Other ankle sprain and strain Anxiety state, unspecified 12/11/2004 DX:An xiety state, unspecified Family History Medical History Relation Name Comments Breast cancer Sister age 69 Colon cancer Neg Hx Ovarian cancer Neg Hx Relation Name Status Comments Sister age 69 Alive Social History Tobacco Use Types Packs/Day Years Used Date Smoking Tobacco: Former Cigarettes Q uit: 03/07/1991 Alcohol Use Standard Drinks/Week Comments No 0 (1 standard drink = 0.6 oz pur e alcohol) Housing Instability Answer Date Recorde d Are you worried that in the next 2 months you may not have stable housing? Patient declined 09/04/2024 Food Access & Nutrition Answer Date Rec orded Do you have access to a vari ety of food including fruits and vegetables? Patient declined 09/04/2024 Access to Healthcare Answer Date Record ed Within the last 3 months, ho w many times did you visit the emergency department for your medical care? 0 09/04/2024 Health Literacy Answer Date Recorded How often do you need to hav e someone help you when you read instructions, pamphlets, or other written material from your doctor or pharmacy? Never 09/04/2024 Caregiver: How often do you need to have someone help you when you read instructions, pamphlets, or other written material from your doctor or pharmacy? Not on file 09/04/2024 Financial Risk Answer Date Recorded How hard is it for you to pa y for the very basics like food, housing, medical care, and air conditioning / heating? Patient declined 09/04/2024 Transportation Answer Date Recorded Has the lack of transportati on kept you from meetings, work, or from getting things needed for daily living? Patient declined 09/04/2024 Has the lack of transportati on kept you from medical appointments or from getting medications? Patient declined 09/04/2024 Social Isolation Answer Date Recorded How often do you feel lonely or isolated from th ose around you? Rarely 09/04/2024 Food Risk Answer Date Recorded Within the past 12 months we worried whether our food would run out before we got money to buy more. Patient declined 025 Within the past 12 months th e food we bought just didn't last and we didn't have money to get more. Patient declined 08/08 Dependent Care Answer Date Recorded Do you need help finding or paying for care for your loved ones. For example, home child care provider or elderly care for an older adult? Patient declined 09/04/2024 Education Answer Date Recorded Do you think completing more education or training, like finishing a GED, going to college, or learning a trade, would be helpful for you? N/A 09/04/2024 Employment and Income Answer Date Recor ded During the last four weeks, have you been actively looking for work? Patient declined 09/04/2024 Living Situation Answer Date Recorded What is your living situation? 0 09/04/2024 Comments Unknown Sex and Gender Information Value Date Recorded Sex Assigned at Not on file Legal Sex Female 9:33 AM EST Gender Identity Not on file Sexual Orientation Not on file Obstetrics History Last Filed Vital Signs Vital Sign Reading Time Taken Comments Blood Pressure 137/89 09/04/2024 3:32 PM EDT Pulse 82 09/04/2024 3:32 PM EDT Temperature 36.7 C (98 F) 06/30/2024 3:14 PM EDT Respiratory Rate - - Oxygen Saturation 95% 09/04/2024 3:32 PM EDT Inhaled Oxygen Concentration - - Weight - - Height - - Body Mass Index - - Plan of Treatment Health Maintenance Due Date Last Done Comments Pneumococcal Vaccine: 50+ Years (1 of 2 - PCV) 08/13/1959 Zoster Vaccines (1 of 2) 08/13/1959 RSV Immunization Adult Patients (1 - 1-dose 75+ series) 08/13/2014 Depression Screening 02/02/2022 Falls Risk Assessment 02/02/2022 Medicare Annual Wellness Visit 02/02/2022 Osteoporosis Screening (Bone Density Screening) 02/02/2022 COVID-19 Vaccine (2023-2 5 season) 2023 01/20/2021, 06/02/2020, 05/05/2020 Influenza Vaccine (#1) 2024 Social Influencers of Health Screening 09/04/2025 09/04/2024 DTaP,Tdap,and Td Vaccines (4 - Td or Tdap) 11/16/2030 11/16/2020, 10/23/2003, 04/22/1999 HIB Vaccines Aged Out No longer eligi ble based on patient's age to complete this topic HPV Vaccines Aged Out No longer eligi ble based on patient's age to complete this topic Hepatitis A Vaccines Aged Out No long er eligible based on patient's age to complete this topic Hepatitis B Vaccines Aged Out No long er eligible based on patient's age to complete this topic IPV Vaccines Aged Out No longer eligi ble based on patient's age to complete this topic MMR Vaccines Aged Out No longer eligi ble based on patient's age to complete this topic Meningococcal ACWY Vaccine Aged Out N o longer eligible based on patient's age to complete this topic Meningococcal B Vaccine Aged Out No l onger eligible based on patient's age to complete this topic RSV Immunization Patients Under 20 months Aged Out No longer eligible b ased on patient's age to complete this topic Varicella Vaccines Aged Out No longer eligible based on patient's age to complete this topic Insurance MEDICARE [facility] [place] [id number] Care Teams Metal Furrer Relationship Specialty Start Date End Date Loan Bell MD [address] [place] [phone] PCP - General Internal Medicine 06/30/24
== END 2024-09-14 10:09 | disposition home or self-care (01) ==
LOC: HO.CT 10:08
PROVIDERS: PCP Internal Medicine; Visit Provider Hospitalist
DX: J18.9 Pneumonia, unspecified organism (principal); J47.9 Bronchiectasis, uncomplicated; R91.8 Other nonspecific abnormal finding of lung field; R07.9 Chest pain, unspecified
CPT/HCPCS: 71250

== ENCOUNTER → 2024-09-14 10:10 | Outpatient (BNV) | payer MEDICARE, OTHER, SELFPAY | PROVIDERS: PCP Internal Medicine; Visit Provider Radiology Diagnostic Radiology | DX: J47.9 Bronchiectasis, uncomplicated (principal) | CPT/HCPCS: 71250 ==

== ENCOUNTER 2024-10-03 11:08 | Outpatient (AMB) | payer MEDICARE, OTHER, SELFPAY ==
[2024-10-03 11:16] VITALS: BP 144/60; PULSE 78; O2SAT 96; BMI 29.0
--- NOTE | 2024-10-03 11:16 | MHC.OFFVIS ---
Vital Signs 10/03/24 11:16 Height 4 ft 10.5 in Weight 141 lb 1.533 oz BMI 29.0 BP 144/60 H Blood Pressure Location Lt radial Position Sitting Pulse 78 Pulse Source Pulse Oximeter Pulse Oximetry (%) 96 Oxygen Delivery Method Room Air Intake Visit Reasons: Bronchiectasis Reptile Keeper Required: No Accompanied by: Self / Same As Patient Allergies amoxicillin (From Augmentin) Adverse Reaction (Severe, Verified 10/03/24 11:22) vomiting clavulanic acid (From Augmentin) Adverse Reaction (Severe, Verified 10/03/24 11:22) vomiting doxycycline Adverse Reaction (Severe, Verified 10/03/24 11:22) Nausea Erythromycin Allergy (Mild, Uncoded 06/19/24 15:11) Stomach Cramps Sulfa Drugs Allergy (Mild, Uncoded 06/19/24 15:11) Rash HPI Comments Details: Mrs Benitez, is an 84 years old woman with a history of asthma. In addition she has history of dyspnea on exertion with occasional wheezing like feeling, for the past few years. She says that she had a pulmonary function test at [facility] about 2 years ago. Does not know exact to results. She has used ProAir only once or twice a year at the most. However in the last 6 months she her shortness of breath on exertion has gradually worsened , and in the last 2 months she is feeling tight in her chest with mild wheezing off and on. She did have pulmonary function studies which she was here including spirometry demonstrating severe COPD. The patient has been on Advair for many years. She has developed some hoarseness due to this medication. In the meantime we talked about adding a muscarinic antagonist the patient was not sure because she had a bad reaction to another inhaler in the past but she does not remember the name. She is very concerned because she is very sensitive to medications. Based on the fact that she has significant COPD she would really benefit from pulmonary rehabilitation. Therefore make arrangements with the pulmonary rehabilitation at [facility] which is close to her home. 12/29/2019 the patient is here for pulmonary follow-up visit. Overall she is feeling well. She has been using her respiratory medication with very good effect. She was participating a pulmonary rehabilitation until the rehab closed during the COVID-19 infections. In the meantime she has continued to exercise at home. She has noticed some slight discomfort to her left chest area primarily in the back. A seems to come and go. At this point does feel better. On examination she seems to have some crackles at the base. Therefore further imaging studies are warranted. 07/23/2020 the patient is here for pulmonary follow-up visit. She continues to use her respiratory medications. Currently taking 1 puff of the Advair twice a day. She still complaining of dyspnea on exertion. Moderate severity with minimal activity. She is wondering if she should increase her Advair. We did talk about other alternatives including putting her on triple agent. At this point the patient is not interested in switching inhalers. In addition to that we did review her imaging studies. Back in November [address] scan of the abdomen the documented some pulmonary nodules which are subcentimeter in size. Her multiple nodules noted bilateral. The patient needs to have a did a CT scan of the chest at this time to assess for the pulmonary nodules and also the significant dyspnea. She also had a 6 minutes walk test during the visit where she desaturated but did not qualify for oxygen. Therefore, will have her undergo pulmonary function studies as well. The patient would like to continue the Advair right now she will increase to the full dose. 08/22/2020 the patient is here for pulmonary follow-up visit. She is doing a little better after increasing the Advair to twice a day 2 puffs. Her shortness of breath and chest congestion have improved. She did undergo a CT scan of the chest which demonstrates evidence of bronchiectasis primarily in the right middle lobe right lower lobe and also in the lingular area. She also has pulmonary nodules in some tree-in-bud. Most likely is all related to smoldering infection such as mycobacterial disease. She likes to work in the garden we did talk about mycobacterial bacteria that time to be not so will. She is going to start wearing a mask. The patient does have evidence of mucus plugging so therefore she will start chest physical therapy with nebulized therapy with albuterol as well as an Acapella valve that we get through her [employer]. Will also try to get a sputum culture for overall of Gram staining culture and AFB cultures. The patient will continue with the Advair at this time. Will follow up in the fall and decide at that point depending on her symptoms went to repeat the CT scan between 6-12 months. 12/27/2020 the patient is here for a pulmonary follow-up visit. Overall the patient has been doing well. She has a hard time tolerating the nebulized therapy due to albuterol making her very shaky and tremulous. We did talk about the importance of the bronch all pulmonary hygiene. She does have the Acapella valve. She can try used using half a treatment and see if that is more tolerable for her. She we again discussed the findings on a CT scan demonstrating tree-in-bud suggesting bronchiolitis in addition to small pulmonary nodules. Her last CT scan was back in August 2020. She was not able to bring sputum cultures her samples therefore we do not have any specimens to review. The patient will continue with current respiratory therapy and will follow-up next year will plan to do another CT scan for follow-up of her pulmonary nodules. 12/02/2021 the patient is here for pulmonary follow-up visit. Overall she continues to do well. She continues use her respiratory therapy. Denies any recent exacerbations or need for prednisone. She also underwent a CT scan of the chest in [place] personally by me. The patient has multiple pulmonary nodules although the largest nodule measuring 9 mm in size and appears to be ground glassy nature. We did compared to her previous CT scan from 2019. no significant changes noted although it is in a regular density just difficult to measure altogether. Does not appear to have any worsening solid component. The patient will require additional follow-up in 1 year or sooner if she develops any worsening symptoms. 01/01/2023 the patient is here for pulmonary follow-up visit. Overall the patient has been doing better. The patient states that back in the summertime the patient went to [facility] to visit her son. While she was there she started developing worsening cough very congested and to the point that she had to seek medical advice. She was evaluated had a negative COVID test. She was found to be rhonchorous in give her a course of antibiotics. She was also given prednisone to take it if she worsens but she did not. The patient overall is better she states that she is 75% better. She still coughing though however. She does use her inhalers as prescribed. The patient did have a CT scan of the chest about a month ago. We did personally review it. It appears that she has new tree-in-bud changes in pulmonary nodules in the right lower lobe area and then a small area of ground-glass opacity suggesting a small localized pneumonia. Therefore will start her on doxycycline to treated for postviral bacterial infections and then will plan to repeat the CT scan an earlier time based on the new findings. 06/18/2023 the patient is here for pulmonary follow-up visit. Overall she is doing okay. She continues to have some hoarseness even with using the spacer with her Advair HFA. She has been using 1 puff twice a day. She will try taking little bit lost to see if her respiratory symptoms stay stable and hoarseness gets a little better. She is also will continue to rinse with mouthwash or salt water after use. The patient also had a CT scan of the chest which we personally reviewed. Patient does have multiple pulmonary nodules largest 1 between 5-6 mm in size. The patient will need to get a repeat CT scan in a year's time. In the meantime she will continue with current respiratory therapy. Follow-up in a year's time after her CT scan. 06/19/2024 the patient is here for pulmonary follow-up visit. It has been about a year since we last spoke. Back in the winter or early 2024 she started developing bad cold. She saw her primary care doctor believe she got some antibiotics. Air cough got better but she still continue to a cough. She started developing some right-sided discomfort that radiates to the arm. She became concerned. During the same time she did undergo a CT scan of the chest to follow-up with pulmonary nodules. She had this elsewhere. She did call the office see what the results were we did send her a copy of the report saying that it was stable. Today though she came into the office and I personally reviewed the images demonstrating slight consolidation right middle lobe area. I did give her a Z-Talha since she still has some discomfort and she is still having a cough. But it seems like the pneumonia has now subsided for the most part. Will go ahead and plan to repeat the CAT scan in 3 months to make sure that the consolidation is all gone. If is still there we can talk about potential options. She does have the Acapella valve and CPT is important to continue. She does have some musculoskeletal discomfort with some pain in the costochondral joints. For the next CT scan will have her get the CAT scan here just to have access to the images quickly and to make sure that it can be addressed quickly specially since it was not visualized on the evaluation. 10/03/2024 the patient is here for a pulmonary follow-up visit. Overall she has been doing okay until the last 3 days when she started developing a postnasal drip and raspy voice and cough. Otherwise she was doing okay with a dry cough. She did also complain of some dyspnea on exertion [id number] with exertion especially when she is doing more regular activity. She does use the Advair with good response. She has had issues with multiple other inhalers with adverse effects. We did talk about potentially changing but is not worth taking the risks specially since she tolerates the Advair well. We can not increase those either because she gets more hoarse from the higher dose. Will keep her on the current dose. She did have a CT scan of the chest which I personally reviewed here at [place] and also they compare to previous CAT scan from April 2024 and also from a CAT scan previously from 2022. It appears that she still has a persistent atelectasis with bronchiectatic changes of the right middle lobe. Does not appear to be have an endobronchial lesion on the CAT scan although is not 100%. Best thing would be to take a look with the bronchoscopy. Although the patient is reluctant at this time. Will go ahead and emphasize the importance of CPT with Acapella valve. I will reorder 1 for her. She should do that twice a day. I did instruct her how to use it. In the meantime the patient should also continue to use her respiratory inhalers. If she is able to bring up a sputum sample we can also send it for culture. In the meantime she is going to have a repeat CAT scan in 6 months. She also has some component of nasal congestion. She is going to start Mucinex DM and also Astelin nasal spray. She can also start a course of azithromycin in case she gets worse. But right now she is doing okay she is going to monitor her symptoms. If she needs more additional medicines she will call. [facility] Medical History (Updated 06/19/24 @ 20:54 by Amrik Rudolph MD) Pneumonia Bronchiectasis Dyspnea Pulmonary nodules Chest crackles Chronic allergic rhinitis COPD (chronic obstructive pulmonary disease) Social History Patient Tobacco Use Status: Former Tobacco user Tobacco use type: Cigarette Years Smoked: 34 years Review of Systems Const Denies night sweats ENT Denies change in voice, Denies lip swelling, Denies mouth pain, Reports nasal congestion, Reports nasal discharge, Reports post nasal drip, Reports sinus pressure and Denies tongue swelling Card Reports chest pain Resp Reports chest congestion and Reports cough GI Denies abdominal pain Musc Denies no additional complaints Neuro Denies Neuro-related abnormal movements Psych Denies no additional complaints Greg/Lymph Denies easy bleeding and Denies lymphadenopathy Aller/Immun Denies lip swelling and Denies tongue swelling Physical Exam Vital Signs: Last Vital Signs Pulse 78 10/03/24 11:16 BP 144/60 H 10/03/24 11:16 Pulse Ox 96 10/03/24 11:16 Oxygen Delivery Method Room Air 10/03/24 11:16 BMI result Body Mass Index 29.0 Const General: alert Eyes Pupils: Equal, round and reactive pupils present Neck Neck: Yes normal visual inspection, Yes full ROM and Yes no lymphadenopathy Chest Chest palpation & inspection: normal inspection of the chest Resp Effort & Inspection: normal respiratory effort Auscultation: no crackles, no rhonchi and diminished lung sounds Cardio Rate: regular rate Rhythm: regular rhythm Heart sounds: S1 normal heart sound present and S2 normal heart sound present GI Palpation (GI): Soft to palpation and nontender Auscultation: normal bowel sounds Skin General skin exam: rashes and/or lesions noted Neuro Cranial nerves: Yes Equal, round and reactive pupils present Results Reviewed Results Reviewed: [place] [address] CT Scan Report Signed Patient: Kaur Benitez MR#: [id number] : 1940 Acct:[id number] Age/Sex: 84 / F ADM Date: 09/14/24 Loc: HO.CT Attending Dr: Amrik Rudolph MD Ordering Physician: Amrik Rudolph MD Date of Service: 09/14/24 Procedure(s): CT chest wo IV con Accession Number(s): [id number] cc: Loan Bell MD; Amrik Rudolph MD~ Report Number: [id number]: Total DLP = 151.00 mGy-cm EXAMINATION: CT CHEST WITHOUT IV CONTRAST INDICATION: J18.9 - Pneumonia, unspecified organism COMPARISON: Correlation is made with PA and lateral views of the chest dated 12/29/2019. TECHNIQUE: Helical CT scan of the chest was performed without intravenous contrast. Coronal and sagittal reformatted images were generated and reviewed. This CT exam was performed with one or more of the following dose reduction techniques: automated exposure control, adjustment of the mA and/or kV according to patient size, use of iterative reconstruction technique. DLP: 151 mGy-cm CHEST: THYROID: The thyroid is unremarkable. LUNGS: There is a 9 mm groundglass opacity at the right lung apex (series 12, image 25). There is atelectasis and volume loss of the right middle lobe with associated bronchiectasis. No endobronchial lesion is identified. There is a 2 mm nodule in the left lower lobe (series 12, image 112). Two adjacent 3 mm nodules are seen in the left lower lobe (series 12, images 120 and 121). MEDIASTINUM: There is no mediastinal lymphadenopathy. TIESHA: Evaluation of the hilar regions is limited by lack of intravenous contrast material. CARDIOVASCULATURE: The heart is normal in size. There is no pericardial effusion. The thoracic aorta is normal in caliber. DEGREE OF CORONARY CALCIFICATION: moderate PLEURA: There is no pleural effusion. No pneumothorax. MAIN AIRWAYS: The mainstem bronchi and proximal branches are patent. AXILLA: There is no axillary lymphadenopathy. BONES AND SOFT TISSUES: Unremarkable UPPER ABDOMEN: The liver is enlarged and demonstrates decreased attenuation, consistent with steatosis. The visualized portions of the spleen and adrenals have an unremarkable unenhanced appearance. There is a small hiatal hernia. CT/CT chest wo IV con IMPRESSION: 1. Right middle lobe atelectasis and associated bronchiectasis. No endobronchial lesion is identified. Bronchoscopy should be considered. 2. Scattered tiny bilateral pulmonary nodules as described. Please see Fleischner Society guidelines below. 3. Hepatomegaly and hepatic steatosis. Fleischner Criteria for pulmonary nodule follow-up SOLID NODULES: Low risk patient: <6mm: no follow-up 6-8mm: 6 month follow-up CT >8mm: PET/Biopsy/ 3 month follow-up CT High risk patient: <6mm: 12 month follow-up CT 6-8mm: 6 month follow-up CT >8mm: PET/Biopsy/ 3 month follow-up CT SUB-SOLID/GROUNDGLASS NODULES: All patients: > or = 6mm: 6 month follow-up CT *Please note that in patients in the following categories, the Fleischner criteria do not apply: Immunocompromised, lung cancer screening population, age below 35, and patients with known malignancy Electronically signed by: Garrett Gonzalez MD 09/14/2024 10:43 AM EDT RP Dictated By: Garrett Gonzalez MD Signed By: <Electronically signed by Garrett Gonzalez MD in OV> 09/14/24 1043 DD/ 1013 TD/TT: 09/14/24 1029 Imaging Account Manager: Assessment & Plan Assessment & Plan (1) Pulmonary nodules: Code(s): R91.8 - Other nonspecific abnormal finding of lung field Category: Medical (2) COPD (chronic obstructive pulmonary disease): Code(s): J44.9 - Chronic obstructive pulmonary disease, unspecified Category: Medical Qualifiers: COPD type: unspecified COPD Qualified Code(s): J44.9 - Chronic obstructive pulmonary disease, unspecified (3) Bronchiectasis: Code(s): J47.9 - Bronchiectasis, uncomplicated Category: Medical Qualifiers: Bronchiectasis type: uncomplicated Qualified Code(s): J47.9 - Bronchiectasis, uncomplicated (4) Pneumonia: Code(s): J18.9 - Pneumonia, unspecified organism Category: Medical Qualifiers: Pneumonia type: due to unspecified organism Laterality: right Lung location: middle lobe of lung Qualified Code(s): J18.9 - Pneumonia, unspecified organism (5) Chest pain: Code(s): R07.9 - Chest pain, unspecified Category: Medical Qualifiers: Chest pain type: unspecified Qualified Code(s): R07.9 - Chest pain, unspecified Plan Continue Advair 2 puffs twice a day with spacer HAYDEN as needed start CPT with Acapella valve twice a day start astelin nasal spray Mucinex DM repeat CT chest in 6 months F/U 6 months Medications: New azelastine administer into each nostril 2 sprays intranasal BID 30 mL 6RF 30 days Coding Level of Care Code Est Pt Level 4 (92772) Complex EM visit Add On G2211 Diagnoses Pulmonary nodules R91.8 Chronic obstructive pulmonary disease, unspecified COPD type J44.9 COPD type: unspecified COPD Bronchiectasis without complication J47.9 Bronchiectasis type: uncomplicated Pneumonia of right middle lobe due to infectious organism J18.9 Pneumonia type: due to unspecified organism Laterality: right Lung location: middle lobe of lung Chest pain, unspecified type R07.9 Chest pain type: unspecified Time Spent (min) 18
--- OUTSIDE RECORDS SUMMARY | 2024-10-03 12:22 | XMS_ITS | Clinical Summary ---
Author Organization [address] Address [address] [place] [address] Phone Care Team Providers Care Hood Maker Name Role Phone Loan Bell MD Primary Care Provider [phone] Allergies Active Allergy Reactions Criticality Noted Date Comments Codeine 12/11/2004 Doxycycline 10/11/2013 Upset stomach and pain Erythromycin 12/11/2004 Medications levothyroxine (SYNTHROID, LEVOTHROID) 25 mcg tablet Take 1 tablet (25 mcg total) by mouth 1 (one) time each day. 05/21/19 25 Active Advair HFA 115-21 mcg/actuation inhaler Inhale 2 puffs by mouth 2 (two) times a day. 03/16/19 25 Active OptiChamber Yamilet [facility] inhaler See administration instructions. 03/17/19 25 Active triamcinolone (KENALOG) 0.1 % cream Apply 1 Application topically 2 (two) times a day for 7 days. 30 g 09/05/19 25 025 Encounters Date Type Department Care Team Description 09/04/2024 3:15 PM EDT Office Visit Walk-In Clinic - [address] [phone] Christoph Bhardwaj PA Allergic dermatitis (Primary Dx) from Last 3 Months Surgical History Surgery Date Site/Laterality Comments APPENDECTOMY PROCEDURE: HISTORICAL APPENDECTOMY TONSILLECTOMY ADENOIDECTOMY, BILATERAL MYRINGOTOMY AND TUBES PROCEDURE: PA TONSILLECTOMY & ADENOIDECTOMY <AGE 12 Medical History [...] care for your loved ones. For example, child care cook or elderly care for an older adult? [...] PCV) 08/13/1958 Zoster Vaccines (1 of 2) 08/13/1989 RSV Immunization Adult Patients (1 - 1-dose 75+ series) 08/13/2014 Falls Risk Assessment 02/02/2022 Medicare Annual Wellness Visit 02/02/2022 Osteoporosis Screening (Bone Density Screening) 02/02/2022 COVID-19 Vaccine ( - 2023-2 5 season) 2023 01/20/2021, 06/02/2020, 05/05/2020 Depression Screening 03/08/2024 Influenza Vaccine (#1) 2024 Social Influencers of [...] age to complete this topic Insurance MEDICARE [facility] Care Teams Hood Maker Relationship Specialty Start Date End Date Loan Bell MD [address] [facility] [address] [place] [address] PCP - General Internal Medicine 06/30/24
--- OUTSIDE RECORDS SUMMARY | 2024-10-03 12:22 | XMS_ITS | Data Portability ---
Author Organization [facility], [employer] Address [address] [place] [address] Assessment No assessment recorded. Plan of Treatment [...] Organization Details Recorded Time Laceration - injury [id number] Active Anujamaria elena Culver [facility] 5 10:27:15 Laceration of finger [id number] Active 015 Anuja Culver [facility] 5 10:27:15 Problem Notes None recorded. Medical [...] Code Diagnosis Note 1001 Jarrett Rowan MD [facility] [address] [facility] [place] [address] 11/14/2014 10:15:29 11/14/2014 11:15:59 Laceration - injury [id number] Health Concerns Section Related Observation LastModified by Organization Detai ls LastModified Time None Recorded Concern Status LastModified by Organization Details LastModified Time None Recorded Advance Directives Directive None Recorded Payers Insurance Date Sequence Insurance Name Policy Number Policy Denis Covered Member ID Denis Member ID Guarantor Name 12/10/2020 1 [place] [id number] Kaur Benitez [id number] Kaur Benitez 12/10/2020 2 [facility] [id number] Kaur Benitez [id number] Kaur Benitez OBGyn Episode No OBEpisode recorded.
== END 2024-10-03 11:56 | disposition home or self-care (01) ==
LOC: HO.HPS 11:08
PROVIDERS: PCP Internal Medicine; Visit Provider Hospitalist
DX: R91.8 Other nonspecific abnormal finding of lung field (principal); J44.9 Chronic obstructive pulmonary disease, unspecified; J47.9 Bronchiectasis, uncomplicated; J18.9 Pneumonia, unspecified organism; R07.9 Chest pain, unspecified
CPT/HCPCS: 99214; G2211

== ENCOUNTER → 2024-10-03 11:08 | Outpatient (BNVA) | payer MEDICARE, OTHER, SELFPAY | PROVIDERS: PCP Internal Medicine; Visit Provider Hospitalist | DX: R91.8 Other nonspecific abnormal finding of lung field (principal); J47.9 Bronchiectasis, uncomplicated; J44.9 Chronic obstructive pulmonary disease, unspecified; J18.9 Pneumonia, unspecified organism; R07.9 Chest pain, unspecified | CPT/HCPCS: 99212 ==